=== PATIENT | male | born 1970 | race Two or more races ===

== ENCOUNTER 2020-08-07 07:56 | Outpatient (CLI) | payer OTHER | END 2020-08-07 07:57 | disposition home or self-care (01) | LOC: PPH VACUNA 07:56 | DX: Z23 Encounter for immunization (principal) ==

== ENCOUNTER 2021-02-05 07:00 | Outpatient (CLI) | payer OTHER | END 2021-02-05 07:15 | disposition home or self-care (01) | LOC: PPH VACUNA 07:00 | PROVIDERS: ATTEND Emergency Medicine Pediatric Emergency Medicine | DX: Z23 Encounter for immunization (principal) ==